=== PATIENT | female | born 1965 | race Asian ===

== ENCOUNTER 2018-11-04 06:07 | Day surgery (SDC) | payer OTHER ==
[~2018-11-04] VITALS: Ht 149.9 cm; Wt 64.1 kg
[2018-11-04 07:14] VITALS: Ht 149.9 cm; Wt 64.1 kg
[2018-11-04] MEDS ORDERED: LEVOTHYROXINE (07:19)
[2018-11-04] MEDS ORDERED: LISINOPRIL (07:19)
[2018-11-04] MEDS ORDERED: LIPITOR (07:19)
[2018-11-04] MEDS ORDERED: ASPI-903 PO (07:19)
[2018-11-04] MEDS ORDERED: OMEPRAZOLE (07:19)
[2018-11-04] MEDS ORDERED: HYDROCHLOROTHIAZIDE (07:19)
[2018-11-04] MEDS ORDERED: METFORMIN (07:19)
[2018-11-04 07:32] VITALS: BP 141/62; PULSE 64; RESP 15
[2018-11-04] MEDS ORDERED: FENTAnyl 50 MCG/ML VIAL ONE (08:43)
[2018-11-04] MEDS ORDERED: MIDAZOLAM 1 MG/ML 2 ML INJ ONE ×2 (08:43)
[2018-11-04 09:04] VITALS: BP 100/65; RESP 15
== END 2018-11-04 12:47 | disposition home or self-care (01) ==
LOC: GIL 06:07
PROVIDERS: ATTEND Internal Medicine Gastroenterology
DX: Z12.11 Encounter for screening for malignant neoplasm of colon (principal); K64.8 Other hemorrhoids; E11.9 Type 2 diabetes mellitus without complications; I10 Essential (primary) hypertension
CPT/HCPCS: 45378; 82962; J2250; J3010